=== PATIENT | female | born 1940 | race Caucasian/White ===

== ENCOUNTER → 2018-07-07 07:56 | Outpatient (CLI) | payer OTHER, SELFPAY ==
--- NOTE | 2018-07-07 | DI.MG.S_ITS ---
BILATERAL DIGITAL SCREENING MAMMOGRAM 3D/2D WITH CAD: 07/07/2018 CLINICAL: Routine screening. Family history of breast cancer. Comparison is made to exams dated: 07/05/2015 mammogram, 06/07/2014 mammogram, and 06/06/2013 mammogram - [facility]. The tissue of both breasts is heterogeneously dense. This may lower the sensitivity of mammography. Current study was also evaluated with a Computer Aided Detection (CAD) system. There is 1 cm oval equal density asymmetry with an indistinct margin in the left breast middle depth superior region seen on the mediolateral oblique view only. No other significant masses, calcifications, or other findings are seen in either breast. IMPRESSION: INCOMPLETE: NEEDS ADDITIONAL IMAGING EVALUATION The 1 cm oval equal density asymmetry in the left breast is indeterminate. Mediolateral and spot compression views as well as additional views with possible ultrasound are recommended. This exam was interpreted at Station ID: [id number]. NOTE: For mammograms, a report in lay terms will be sent to the patient. Approximately 15% of breast malignancies will not be visualized mammographically. In the management of a palpable breast mass, a negative mammogram must not discourage biopsy of a clinically suspicious lesion. Electronically Signed By: Josue tapia/lala:07/07/2018 10:29:33 letter sent: Additional Imaging Needed ACR BI-RADS Category 0: Incomplete [id number]
== END ==
PROVIDERS: PCP Family Medicine; Visit Provider Family Medicine
DX: Z12.31 Encounter for screening mammogram for malignant neoplasm of breast (principal); Z80.3 Family history of malignant neoplasm of breast
CPT/HCPCS: 77063; 77067

== ENCOUNTER → 2018-07-21 09:59 | Outpatient (CLI) | payer OTHER, SELFPAY ==
--- NOTE | 2018-07-21 | DI.CT.S_ITS ---
PROCEDURE: CT ABDOMEN WO/W CON INDICATIONS: History of renal cell carcinoma of the right kidney status post partial right nephrectomy. TECHNIQUE: Optional 5 mm thick noncontrast images acquired from the diaphragm to the iliac crests. After the administration of intravenous contrast, 5 mm thick images again acquired from the diaphragm to the iliac crests in the arterial and urographic phases. 5 mm thick coronal and sagittal reformats were then acquired. For radiation dose reduction, the following was used: automated exposure control, adjustment of mA and/or kV according to patient size. COMPARISON: [facility], CT, ABDOMEN W&WO CONTRAST, 07/06/2017, 8:08. FINDINGS: Image quality: Excellent. Lung bases: There is mild linear scarring and atelectasis in the lung bases. Heart size is normal. Genitourinary: There are postsurgical changes in the right kidney consistent with interval partial nephrectomy. There is mild fat stranding and irregularity along the posterior right renal contour consistent with scarring. No discrete renal mass identified. There are bilateral parapelvic renal cysts. There is mild right pelvocaliectasis which appears slightly increased from the prior study. The visualized ureters appear normal in caliber. No discrete obstructing mass or stone identified. No suspicious filling defects within the opacified renal collecting systems. Other solid organs: There are a few small scattered hypodense foci within the liver which are too small to characterize but appear unchanged from the prior study and likely represent cysts. There is a small exophytic projection along the posterior right hepatic lobe which appears unchanged from the prior study. No discrete associated mass identified. The gallbladder is contracted with mild wall enhancement. No calcified gallstones or pericholecystic fluid. There is mild biliary ductal dilatation, measuring up to 10 mm with tapering distally into the interlobar artery. This appears slightly increased from the prior study. No pancreatic duct dilatation. No discrete pancreatic mass identified. Pancreas enhances normally. Spleen is normal in size and enhancement. No adrenal nodules. Peritoneum and bowel: Visualized bowel loops are normal in wall thickness and caliber. No free fluid or air. Nodes and vessels: No retroperitoneal or mesenteric adenopathy by size criteria. Aorta and inferior vena cava are normal in caliber. Bones: No suspicious bony lesions. No vertebral body compression fractures. Miscellaneous: No ventral hernias. IMPRESSION: 1. Postoperative changes status post partial right nephrectomy without definite evidence of recurrent or new metastatic disease in the abdomen. No new renal masses. 2. Mild right pelvocaliectasis without hydroureter. Finding is nonspecific with no discrete obstructing mass or stone identified. Recommend short-term followup to demonstrate resolution or stability, possibly with ultrasound. 3. Slightly increased biliary ductal dilatation without obstructing calcified stone or mass identified. Recommend correlation with laboratory values and further evaluation with MRCP if indicated. Dictated by: Josue Olivas M.D. on 07/21/2018 at 16:12 Approved by: Josue Olivas M.D. on 07/21/2018 at 16:23
--- NOTE | 2018-07-21 | DI.RAD.S_ITS ---
PROCEDURE: XR CHEST 2V INDICATIONS: Renal Carcinoma TECHNIQUE: 2 views of the chest were acquired. COMPARISON: [facility], , CHEST 1 VIEW, 05/10/2017, 16:44. FINDINGS: Surgical changes and devices: None. Lungs and pleura: No pleural effusions or pneumothorax. Lungs are clear. Mediastinum: Mediastinal contours are normal. Heart size is normal. Bones and chest wall: No suspicious bony abnormalities. Soft tissues appear unremarkable. IMPRESSION: No acute disease. Dictated by: Dominic Cheney M.D. on 07/21/2018 at 13:10 Approved by: Dominic Cheney M.D. on 07/21/2018 at 13:11
--- NOTE | 2018-07-21 | DI.MG.S_ITS ---
UNILATERAL LEFT DIGITAL DIAGNOSTIC MAMMOGRAM 3D/2D WITH ADDITIONAL VIEWS: 07/21/2018 CLINICAL: Additional evaluation requested from prior study. Comparison is made to exams dated: 07/07/2018 mammogram, 07/05/2015 mammogram, and 06/07/2014 mammogram - [facility]. There are scattered fibroglandular elements in left breast. Previously identified 1 cm oval equal density asymmetry with an indistinct margin in the left breast middle depth superior region seen on the mediolateral oblique view only of comparison screening mammograms persists with additional views, and appears to localize to the medial left breast on iamge 12/53 of the L SLMBTO view. No other significant masses, calcifications, or other findings are seen in the breast. IMPRESSION: INCOMPLETE: NEEDS ADDITIONAL IMAGING EVALUATION Previously identified 1 cm oval equal density asymmetry with an indistinct margin in the left breast middle depth superior region seen on the mediolateral oblique view only of comparison screening mammograms persists with additional views, and appears to localize to the medial left breast on iamge 12/53 of the L SLMBTO view. A targeted ultrasound of the superior medial left breast is recommended for further evaluation (9 o'clock through 12 o'clock radians), and is scheduled for August 02, 2018. This exam was interpreted at Station ID: [id number]. NOTE: For mammograms, a report in lay terms will be sent to the patient. Approximately 15% of breast malignancies will not be visualized mammographically. In the management of a palpable breast mass, a negative mammogram must not discourage biopsy of a clinically suspicious lesion. Electronically Signed By: Thaddeus Montano M.D. ecl/:07/22/2018 11:04:10 Entry: - 07/22/2018 11:04:10 letter sent: Need Ultrasound ACR BI-RADS Category 0: Incomplete [id number]
[2018-07-21 10:50] LABS: Add Manual Diff / Slide Review NO; Basophils Percent Auto 0.5 % (0-2); Eosinophils Percent Auto 1.4 % (2-4); Hematocrit 40.5 % (36-46); Hemoglobin 13.3 g/dL (12.0-16.0); Lymphocytes Percent Auto 30.4 % (25-40); Mean Corpuscular HGB Conc 32.9 % (30-36); Mean Corpuscular Hemoglobin 30.3 PG (26-34); Monocytes Percent Auto 5.5 % (3-14); Neutrophils Absolute Auto 3900 /uL (3000-5900); Neutrophils Percent Auto 62.2 % (50-75); Platelet Count 250 X10^3/uL (150-400); Red Cell Distribution Width 14.7 % (11.6-14.8); White Blood Cell Count 6.3 X10^3/uL (4.5-11.0)
[2018-07-21 11:03] LABS: Alanine Aminotransferase 14 IU/L (9-52); Albumin 4.2 g/dL (3.5-5.0); Albumin Globulin Ratio 1.6 (1.0-2.8); Alkaline Phosphatase 53 U/L (38-126); Aspartate Aminotransferase 20 IU/L (14-36); BUN Creatinine Ratio 28.9 (6-22); Bilirubin Total 0.4 mg/dL (0.2-1.3); Blood Urea Nitrogen 26 mg/dL (7-17); Calcium 9.5 mg/dL (8.4-10.2); Carbon Dioxide 34 mmol/L (22-32); Chloride 102 mmol/L (98-107); Estimated Glomerular Filt Rate > 60.0 mL/min (>60); Globulin 2.7 g/dL (1.7-4.1); Glucose 97 mg/dL (80-110); HEMOLYSIS < 15 (0-50); Potassium 4.5 mmol/L (3.4-5.1); Sodium 143 mmol/L (137-145); Total Protein 6.9 g/dL (6.3-8.2)
== END ==
PROVIDERS: PCP Family Medicine; Visit Provider Urology
DX: C64.1 Malignant neoplasm of right kidney, except renal pelvis (principal); K83.8 Other specified diseases of biliary tract; R92.8 Other abnormal and inconclusive findings on diagnostic imaging of breast
CPT/HCPCS: 36415; 71046; 74170; 77065; 80053; 85025; G0279; Q9967

== ENCOUNTER → 2018-07-21 10:25 | Outpatient (CLI) | payer OTHER, SELFPAY | PROVIDERS: PCP Family Medicine; Visit Provider Urology | DX: C64.1 Malignant neoplasm of right kidney, except renal pelvis (principal) ==

== ENCOUNTER → 2018-08-02 10:12 | Outpatient (CLI) | payer OTHER, SELFPAY ==
--- NOTE | 2018-08-02 | DI.US.S_ITS ---
ULTRASOUND OF LEFT BREAST: 08/02/2018 CLINICAL: Patient returns for additional imaging over a suspected mass in the left breast. Comparison is made to exams dated: 07/21/2018 mammogram, 07/07/2018 mammogram, and 07/05/2015 mammogram - [facility]. Real-time ultrasound of the left breast was performed on the areas of interest. Sweeney scale images of the real-time examination were reviewed. There is 1.7 cm x 0.8 cm x 1.4 cm mass in the left breast at 2 o'clock middle depth. This mass is hypoechoic. This correlates with mammography findings. IMPRESSION: SUSPICIOUS OF MALIGNANCY The 1.7 cm x 0.8 cm x 1.4 cm mass in the left breast is at a low suspicion for malignancy. An ultrasound guided biopsy is recommended. This exam was interpreted at Station ID: [id number]. SUMMARY: This was discussed with the patient by the radiologist Dr. Arredondo at the time of the exam. Electronically Signed By: Amber wilder/:08/02/2018 14:35:14 letter sent: Biopsy Required Ultrasound BI-RADS: 4a Suspicious abnormality - low suspicion for malignancy
== END ==
PROVIDERS: PCP Family Medicine; Visit Provider Family Medicine
DX: R92.8 Other abnormal and inconclusive findings on diagnostic imaging of breast (principal); N63.21 Unspecified lump in the left breast, upper outer quadrant
CPT/HCPCS: 76642

== ENCOUNTER → 2018-08-25 12:00 | Outpatient (CLI) | payer OTHER, SELFPAY ==
--- NOTE | 2018-08-25 | DI.MG.S_ITS ---
UNILATERAL LEFT DIGITAL DIAGNOSTIC MAMMOGRAM: 08/25/2018 CLINICAL: Left breast mass. Comparison is made to exams dated: 07/21/2018 mammogram, 07/07/2018 mammogram, and 07/05/2015 mammogram - [facility]. There are scattered fibroglandular elements in left breast, and a post biopsy marker is at the expected site from comparison prior pre-biopsy studies. IMPRESSION: POST PROCEDURE MAMMOGRAM FOR MARKER PLACEMENT Normal biopsy marker positioning. This exam was interpreted at Station ID: [id number]. NOTE: For mammograms, a report in lay terms will be sent to the patient. Approximately 15% of breast malignancies will not be visualized mammographically. In the management of a palpable breast mass, a negative mammogram must not discourage biopsy of a clinically suspicious lesion. Electronically Signed By: Rosendo Arredondo M.D. sdh/:08/25/2018 17:00:03 ACR BI-RADS Category Post-procedure mammogram for marker placement
--- NOTE | 2018-08-25 | DI.US.S_ITS ---
ULTRASOUND GUIDED BIOPSY LEFT BREAST USING VACUUM DEVICE WITH MARKING DEVICE INSERTED AND POST MAMMOGRAPHIC IMAGIN08/25/2018 CLINICAL: Left breast mass. PATIENT CONSENT: Risks (minor bleeding, infection, vasovagal reaction and repeat procedure), benefits and alternatives were explained to the patient and written informed consent was obtained. Correlation is made to exams dated: 08/02/2018 ultrasound, 07/21/2018 mammogram, 07/07/2018 mammogram, 07/05/2015 mammogram, and 06/07/2014 mammogram - [facility]. An ultrasound guided biopsy using real-time ultrasound was performed for the concerning 0.4 cm x 0.5 cm x 0.7 cm circumscribed oval mass located in the left breast at 2 o'clock middle depth. This was described on the previous ultrasound report. The skin was prepped in the usual manner. Local anesthetic was administered to the access site. A skin marycarmen was made in the breast. The abnormality was approached from the lateral aspect. A 13 gauge biopsy needle was placed adjacent to the abnormality under ultrasound guidance. Once the needle was documented to be in the correct location, four specimens were obtained using the Mammotome biopsy system. The patient received additional local anesthetic during the procedure. A clip was inserted into the biopsy cavity. A skin closure strip and a sterile dressing were applied to the access site. Post procedure mammographic imaging demonstrates the location device at the targeted area. The specimens were sent to the laboratory for pathological analysis. IMPRESSION: ULTRASOUND GUIDED BIOPSY BENIGN Ultrasound guided biopsy of the 0.4 cm x 0.5 cm x 0.7 cm mass in the left breast at 2 o'clock middle depth was successful. Pathology indicates benign stromal fibrosis. Pathology results are concordant with imaging findings. Return to annual mammogram screening schedule is recommended. This exam was interpreted at Station ID: [id number]. Rosendo Lee M.D. [facility],tina/:08/26/2018 17:27:30
--- NOTE | 2018-08-25 | PATH_ITS ---
[facility] [place] Accession Number: [id number] . 01 Material submitted: . LEFT BREAST . 01 Clinical history: . MASS 2:00 5CM FN . 02 Diagnosis: Left Breast Needle Core Biopsy, 2 o'clock, 5 cm From The Nipple: Benign breast tissue with very dense fibrous stroma. Negative for atypia and malignancy. MRV/08/26/2018 . 02 Electronically signed: . Yuval Steve MD, Pathologist NPI- [id number] . 01 Gross description: . Received one formalin-filled container labeled with the patient's name and designated left breast mass, 2 o'clock, 5 cm, FN. The specimen is received with plastic filter in container. Sample loose in container. The specimen consists of four 0.2 to 0.3 cm in diameter light quigley-white cylindrical shaped portions of tissue, which range in length from 0.6 to 1.1 cm. The specimen is entirely submitted in one cassette. Collection date is 08/25/2018. Collection time is 0129, per container. Total fixation time 12 hours up to 24. ([facility]:[id number]) /[facility] . 02 Pathologist provided ICD-10: R92.8 . 02 CPT . 203420 Specimen Comment: A duplicate report has been generated due to demographic updates. Performed at: 01 [facility] [address] [place] [address], [place], [place] [id number] MD Josue Carlisle MD Phone: [phone] Performed at: [address] [facility] [address] [place], [place] [id number] MD Mae Padilla MD Phone: [phone]
== END ==
PROVIDERS: PCP Family Medicine; Visit Provider Family Medicine
DX: N60.32 Fibrosclerosis of left breast (principal)
CPT/HCPCS: 19083; 77065

== ENCOUNTER 2019-06-30 00:22 | Emergency (ER) | payer MEDICARE, SELFPAY ==
[2019-06-30 00:25] VITALS: BP 158/79; PULSE 87; RESP 20; TEMP 36.7; O2SAT 96; BMI 32.8
--- NOTE | 2019-06-30 00:38 | ED_ITS ---
HPI - Abdominal Pain General Chief Complaint: Abdominal Pain Stated Complaint: TIGHTNESS IN STOMACH UP TO CHEST Time Seen by Provider: 06/30/19 00:31 Source: patient Mode of arrival: Ambulatory Limitations: no limitations History of Present Illness HPI narrative: The patient is a 78 year female who presents with not feeling well She actually had a stress-induced cardiomyopathy 2 years ago she does not remember the symptoms but she thinks this might be similar. She denies any chest pain she says she did not have any chest pain last time either. She feels like she is burping a lot but she really denies any abdominal pain. She is not nauseous she has been eating and drinking normally. Related Data Home Medications Medication Instructions Recorded Confirmed aspirin 81 mg PO QDAY #0 07/11/12 04/04/18 cholecalciferol (vitamin D3) 1,000 unit PO QDAY #0 04/08/17 04/04/18 [Vitamin D3] cyanocobalamin (vitamin B-12) 500 mcg PO QDAY #0 04/08/17 04/04/18 [Vitamin B-12] terbinafine HCl [Lamisil AT] 1 jenn TOPICAL BID #0 05/10/17 04/04/18 furosemide 20 mg PO QDAY #0 06/22/17 04/04/18 lisinopril 2.5 mg PO QDAY #0 06/22/17 04/04/18 spironolactone 12.5 mg QDAY #0 06/22/17 04/04/18 Previous Rx's Medication Instructions Recorded betamethasone dipropionate 0.05 % 1 applictn TOP BID #45 gram 08/04/18 topical ointment hydroxyzine HCl 25 mg tablet 25 mg PO QID PRN #60 tab 08/04/18 Allergies Allergy/AdvReac Type Severity Reaction Status Date / Time metronidazole [From Metrogel] Allergy VAGINAL Verified 06/30/19 00:40 ITCHING Review of Systems Review of Systems ROS Unobtainable: All systems reviewed & are unremarkable except as noted in HPI and below Constitutional Constitutional: Denies chills, Denies fever(s), Denies lethargy and Denies weakness Eyes Eyes: Denies change in vision, Denies eye discharge, Denies irritation and Denies loss of vision ENT Ears, Nose, Mouth, and Throat: Denies change in voice, Denies neck pain and Denies sore throat Cardiovascular Cardiovascular: Denies chest pain, Denies irregular heart rhythm, Denies lightheadedness, Denies palpitations, Denies dyspnea, Denies dyspnea on exertion and Denies orthopnea Respiratory Respiratory: Denies cough, Denies dyspnea, Denies dyspnea on exertion and Denies wheezing Gastrointestinal Gastrointestinal: Reports as per HPI, Denies abdominal pain, Denies change in bowel habits, Denies diarrhea, Denies nausea and Denies vomiting Genitourinary Genitourinary: Denies hematuria, Denies flank pain, Denies urinary incontinence and Denies urinary urgency Musculoskeletal Musculoskeletal: Denies neck pain Integumentary/Breasts Skin/Breast: Denies pruritus, Denies erythema, Denies rash and Denies wounds Neurologic Neurologic: Denies loss of vision and Denies weakness Endocrine Endocrine: Denies palpitations Allergic/Immunologic Allergic/Immunologic: Denies wheezing [facility] Medical History (Updated 06/30/19 @ 01:19 by Tianna White DO) Ankle pain (Chronic ~2007) Chickenpox (Resolved ~1943) COPD (chronic obstructive pulmonary disease) (Chronic) Foot pain (Chronic ~2010) Fractures (Resolved ~1987) Measles (Resolved ~1941) Mumps (Resolved ~1945) Stress-induced cardiomyopathy (Acute) Surgical History History of back surgery (Resolved ~1977) History of back surgery (Resolved ~1983) History of nephrectomy (10/06/17) Status post hysterectomy (~1981) Status post surgical manipulation of ankle joint (Resolved ~1987) Family History Sister Age: 80 Breast cancer Father No problems noted. Grandfather No problems noted. Grandmother No problems noted. Mother No problems noted. Grandfather No problems noted. Grandmother No problems noted. Social History Smoking Status: Never smoker Family History Sister Age: 80 Breast cancer Father No problems noted. Grandfather No problems noted. Grandmother No problems noted. Mother No problems noted. Grandfather No problems noted. Grandmother No problems noted. Social History Smoking Status: Never smoker Exam Initial Vital Signs Initial Vital Signs: Vital Signs Temperature 98.1 F 06/30/19 00:25 Pulse Rate 87 06/30/19 00:25 Respiratory Rate 20 06/30/19 00:25 Blood Pressure 158/79 H 06/30/19 00:25 Pulse Oximetry 96 06/30/19 00:25 GENERAL: Alert pleasant elderly female HEENT: Head atraumatic,EOMI, pupils reactive, face symmetric, moist mucous membranes CARDIOVASCULAR: Regular rate and rhythm without murmurs, rubs or gallops. RESPIRATORY: Breath sounds equal bilaterally, no wheezes rales or rhonchi. ABDOMEN: Soft, nontender. Normoactive bowel sounds all 4 quadrants. No guarding or rebound. No right upper quadrant pain no epigastric pain no lower abdominal pain EXTREMITIES: Normal range of motion, no clubbing or edema. Neurovascularly intact NEUROLOGICAL: Alert and oriented x4.Normal gait and speech. Cranial nerves II through XII grossly intact. SKIN: Warm, dry, no laceration, no petechiae, no rashes or lesions. Course Orders Ordered: ED Orders 06/30/19 EKG-12 Lead Stat 06/30/19 00:30 Complete Blood Count AUTO DIFF Stat Comprehensive Metabolic Panel Stat Lipase Stat Partial Thromboplastin Time Stat Prothrombin Time INR Stat Troponin & CK Cardiac Panel Stat 06/30/19 00:44 XR chest 1V Stat Discontinued Medications Al Hydrox/Mg Hydrox/Simethicone 20 ml/ Lidocaine HCl 15 ml 0 ml PO NOW ONE Stop: 06/30/19 01:27 Last Admin: 06/30/19 01:29 Dose: 35 ml Documented by: ROSSY Sodium Chloride (Normal Saline 0.9%) 1,000 mls @ 150 mls/hr IV CONT RHONDA Last Infusion: 06/30/19 01:53 Dose: 150 mls/hr Documented by: Admin: 06/30/19 00:55 Dose: 150 mls/hr Documented by: ROSSY Vital Signs Vital signs: Vital Signs - 8 hr 06/30/19 00:25 06/30/19 00:48 06/30/19 01:48 Temperature 98.1 F Pulse Rate 87 75 75 Respiratory Rate 20 16 16 Blood Pressure 158/79 H Blood Pressure [Right Arm] 146/67 H 126/63 Pulse Oximetry 96 96 98 MDM - Abdominal Pain Lab Data Attestation: I reviewed the patient's lab results. Result diagrams: 06/30/19 00:30 06/30/19 00:30 Labs: Lab Results 06/30/19 06/30/19 06/30/19 Range/Units 00:30 00:30 00:30 WBC 7.9 (4.5-11.0) X10^3/uL RBC 4.26 (4.0-5.2) X10^6/uL Hgb 13.0 (12.0-16.0) g/dL Hct 38.9 (36-46) % MCV 91.3 (80-100) fL MCH 30.5 (26-34) PG MCHC 33.4 (30-36) % RDW 14.4 (11.6-14.8) % Plt Count 224 (150-400) X10^3/uL Neut % (Auto) 59.3 (50-75) % Lymph % (Auto) 31.3 (25-40) % [place] % (Auto) 7.3 (3-14) % Eos % (Auto) 1.1 L (2-4) % Baso % (Auto) 1.0 (0-2) % Neut # (Auto) 4700 (5190-9226) /uL Lymph # (Auto) 2500 (4756-9103) /uL [place] # (Auto) 600 (0-900) /uL Eos # (Auto) 100 (0-450) /uL Baso # (Auto) 100 (0-100) /uL PT 10.3 (10.1-12.7) SECONDS INR 0.9 (0.9-1.3) APTT 40 H (26.4-36.2) SECONDS Sodium 139 (137-145) mmol/L Potassium 4.1 (3.4-5.1) mmol/L Chloride 104 (98-107) mmol/L Carbon Dioxide 27 (22-32) mmol/L BUN 21 H (7-17) mg/dL Creatinine 0.80 (0.52-1.04) mg/dL Estimated GFR > 60.0 (>60) mL/min BUN/Creatinine Ratio 26.3 H (6-22) Glucose 102 (80-110) mg/dL Calcium 9.6 (8.4-10.2) mg/dL Total Bilirubin 0.5 (0.2-1.3) mg/dL AST 23 (14-36) IU/L ALT 8 L (9-52) IU/L Alkaline Phosphatase 67 (38-126) U/L Total Creatine Kinase 44 (30-135) U/L CK-MB (CK-2) TNP CK-MB (CK-2) Rel Index TNP Troponin I < 0.012 (0.01-0.034) ng/mL Total Protein 7.2 (6.3-8.2) g/dL Albumin 4.1 (3.5-5.0) g/dL Globulin 3.1 (1.7-4.1) g/dL Albumin/Globulin Ratio 1.3 (1.0-2.8) Lipase 63 (23-300) U/L Point of care testing: Urine Dip Bedside Urine Glucose Negative Bedside Urine Bilirubin + 1 Bedside Urine Ketone - Negative Urine Specific [place] 1.025 Bedside Urine Occult Blood - Negative Bedside Urine pH 5.5 Bedside Urine Protein +/- 15 Bedside Urine Urobilinogen - Negative Bedside Urine Nitrite - Negative Bedside Urine Leukocytes +/- 15 Esterase Imaging Data Chest x-ray: Attestation: I personally reviewed and interpreted this imaging study as follows: My impression: No acute cardiopulmonary process ECG Data Attestation: I personally reviewed and interpreted this ECG as follows: Prior ECG tracings: available for review Interpretation: Normal sinus rhythm rate 77 p.r. interval 155 QRS [address] changes Q-waves no T-wave inversions similar to previous EKG MDM Narrative Medical decision making narrative: Patient has very nonspecific symptoms ongoing for 2 days. Troponin is negative it previously was very elevated at 2.5. He has no chest pain no shortness of breath her abdomen soft nontender. She now states that her abdomen is burning. She is given GI cocktail. Abdomen is reexamined it remains nontender no localization of pain. Blood work overall is reassuring. At this time no cause patient's vague symptoms. Discharge Plan Departure Patient Disposition: Home Clinical Impression: Atypical chest pain Discharge Date/Time: 06/30/19 01:54 Instructions: DI for Atypical Chest Pain Activity Restrictions/Additional Instructions: *You have been diagnosed with atypical chest *What to do: At this time blood work chest x-ray x-ray EKG are all within normal limits. I recommend that he follow up with her agricultural adviser. *Continue to take medications as directed *Follow up with your primary care provider in 2-3 days *Return to ER if you should have abdominal pain, chest pain, shortness of breath or any new, worsening or concerning symptoms Prescriptions: No Action aspirin 81 MG tablet,delayed release (DR/EC) 81 mg PO QDAY Qty: 0 RF: 0 cyanocobalamin (vitamin B-12) [Vitamin B-12] 500 MCG tablet 500 mcg PO QDAY Qty: 0 RF: 0 cholecalciferol (vitamin D3) [Vitamin D3] 1,000 UNIT tablet 1,000 unit PO QDAY Qty: 0 RF: 0 terbinafine HCl [Lamisil AT] 1 % cream 1 jenn Topical BID Qty: 0 RF: 0 spironolactone 25 MG tablet 12.5 mg QDAY Qty: 0 RF: 0 furosemide 20 MG tablet 20 mg PO QDAY Qty: 0 RF: 0 lisinopril 2.5 MG tablet 2.5 mg PO QDAY Qty: 0 RF: 0 betamethasone dipropionate 0.05 % ointment 1 applictn TOP BID Qty: 45 RF: 2 hydroxyzine HCl 25 mg tablet 25 mg PO QID PRN (Reason: itching) Qty: 60 RF: 1 Referrals: Greg Rousseau MD [Primary Care Provider] -
--- NOTE | 2019-06-30 00:44 | DI.RAD.S_ITS ---
PROCEDURE: XR CHEST 1V INDICATIONS: chest pain TECHNIQUE: One view of the chest was acquired. COMPARISON: [facility], CR, XR CHEST 2V, 07/21/2018, 11:12. FINDINGS: Surgical changes and devices: None. Lungs and pleura: Chronic left lateral lung base scar. Lungs are otherwise clear. No pleural effusions or pneumothorax. Mediastinum: Mediastinal contours appear normal. Heart size is normal. Bones and chest wall: No suspicious bony lesions. Overlying soft tissues appear unremarkable. IMPRESSION: No acute process. Dictated by: Nikki Leal M.D. on 06/30/2019 at 8:45 Approved by: Nikki Leal M.D. on 06/30/2019 at 8:46
[2019-06-30 00:48] VITALS: BP 146/67; PULSE 75; RESP 16; O2SAT 96
[2019-06-30 00:53] LABS: INR 0.9 (0.9-1.3); Prothrombin Time 10.3 SECONDS (10.1-12.7)
[2019-06-30 00:55] LABS: Add Manual Diff / Slide Review NO; Basophils Absolute Auto 100 /uL (0-100); Eosinophils Absolute Auto 100 /uL (0-450); Eosinophils Percent Auto 1.1 % (2-4); Hematocrit 38.9 % (36-46); Lymphocytes Absolute Auto 2500 /uL (1100-4500); Lymphocytes Percent Auto 31.3 % (25-40); Mean Corpuscular HGB Conc 33.4 % (30-36); Mean Corpuscular Hemoglobin 30.5 PG (26-34); Mean Corpuscular Volume 91.3 fL (80-100); Monocytes Absolute Auto 600 /uL (0-900); Monocytes Percent Auto 7.3 % (3-14); Neutrophils Absolute Auto 4700 /uL (1500-7000); Neutrophils Percent Auto 59.3 % (50-75); Platelet Count 224 X10^3/uL (150-400); Red Blood Cell Count 4.26 X10^6/uL (4.0-5.2); Red Cell Distribution Width 14.4 % (11.6-14.8); White Blood Cell Count 7.9 X10^3/uL (4.5-11.0)
[2019-06-30] MEDS: SODIUM CHLORIDE 0.9% 1,000 ML 150 ML IV (00:55)
[2019-06-30 00:56] LABS: PTT Partial Thromboplastin Tim 40 SECONDS (26.4-36.2)
[2019-06-30 00:58] LABS: Alanine Aminotransferase 8 IU/L (9-52); Albumin 4.1 g/dL (3.5-5.0); Albumin Globulin Ratio 1.3 (1.0-2.8); Alkaline Phosphatase 67 U/L (38-126); Aspartate Aminotransferase 23 IU/L (14-36); BUN Creatinine Ratio 26.3 (6-22); Bilirubin Total 0.5 mg/dL (0.2-1.3); Blood Urea Nitrogen 21 mg/dL (7-17); Calcium 9.6 mg/dL (8.4-10.2); Carbon Dioxide 27 mmol/L (22-32); Chloride 104 mmol/L (98-107); Creatine Kinase 44 U/L (30-135); Estimated Glomerular Filt Rate > 60.0 mL/min (>60); Globulin 3.1 g/dL (1.7-4.1); Glucose 102 mg/dL (80-110); HEMOLYSIS 30 (0-50); Lipase 63 U/L (23-300); Potassium 4.1 mmol/L (3.4-5.1); Sodium 139 mmol/L (137-145); Total Protein 7.2 g/dL (6.3-8.2)
[2019-06-30 01:09] LABS: Troponin I < 0.012 ng/mL (0.01-0.034)
[2019-06-30] MEDS: MAG HYDROX/ALUMINUM/SIMETH SUS 20 ML, LIDOCAINE VISCOUS 2% 15 ML PO (01:29)
[2019-06-30 01:48] VITALS: BP 126/63; PULSE 75; RESP 16; O2SAT 98
== END 2019-06-30 01:54 | disposition home or self-care (01) ==
LOC: ED 02:28
PROVIDERS: Emergency Provider Emergency Medicine; PCP Family Medicine
DX: R07.89 Other chest pain (principal)
CPT/HCPCS: 36591; 71045; 80053; 81003; 82550; 83690; 84484; 85025; 85610; 85730; 93005; 96360; 99283; 99285